=== PATIENT | female | born 1970 | race Caucasian/White ===

== ENCOUNTER 2017-09-22 23:24 | Inpatient (IN) | payer OTHER ==
[~2017-09-22] VITALS: Ht 177.8 cm; Wt 49.9 kg
[2017-09-23 16:40] VITALS: BP 119/70
[2017-09-23] MEDS ORDERED: LORAZEPAM 1 MG TABLET PO PRN (17:45)
[2017-09-23] MEDS ORDERED: LORAZEPAM 2 MG/1 ML VIAL IM PRN (17:45)
[2017-09-23] MEDS ORDERED: MAG HYDROX/AL HYDROX/SIMETH 30 ML LIQUID UDC PO PRN (17:45)
[2017-09-23] MEDS ORDERED: THIAMINE HCL 200 MG/2 ML VIAL IM ONE (17:45)
[2017-09-23] MEDS ORDERED: 5 DAY TAPER OF LORAZEPAM -SERENITY PROTOCOL PO PRN (17:45)
[2017-09-23] MEDS ORDERED: IBUPROFEN 600 MG TABLET PO PRN (17:45)
[2017-09-23] MEDS ORDERED: ONDANSETRON ODT 4 MG TAB.RAPDIS SL PRN (17:45)
[2017-09-23] MEDS ORDERED: ONDANSETRON 4 MG/2 ML VIAL IM PRN (17:45)
[2017-09-23] MEDS ORDERED: MAGNESIUM HYDROXIDE 30 ML LIQUID UDC PO PRN (17:45)
[2017-09-23] MEDS ORDERED: diphenhydrAMINE 50 MG CAPSULE PO PRN (17:45)
[2017-09-23] MEDS ORDERED: ACETAMINOPHEN 325 MG TABLET PO PRN (17:45)
[2017-09-23] MEDS ORDERED: MIRALAX 17 GM POWD.PACK PO PRN (17:45)
[2017-09-23 17:55] LABS: BASOPHILS % (AUTO) 0.5 % (0.0-2.0); EOSINOPHILS % (AUTO) 0.2 % (0.0-7.0); HEMOGLOBIN 13.5 g/dL (10.9-14.3); LYMPHOCYTES # (AUTO) 1.7 K/uL (20.0-40.0); LYMPHOCYTES % (AUTO) 27.2 % (20.5-51.5); MEAN CORPUSCULAR HEMOGLOBIN 31.2 uug (24.7-32.8); MEAN CORPUSCULAR HGB CONC 34 g/dL (32.3-35.6); MEAN CORPUSCULAR VOLUME 91.9 fL (75.5-95.3); MONOCYTES # (AUTO) 0.4 K/uL (2.0-10.0); MONOCYTES % (AUTO) 5.8 % (0.0-11.0); NEUTROPHILS # (AUTO) 4.2 K/uL (1.8-8.9); NEUTROPHILS % (AUTO) 66.3 % (38.5-71.5); PLATELET COUNT (AUTO) 243 K/uL (179-408); RED BLOOD CELL COUNT(AUTO) 4.35 MIL/uL (3.63-4.92); WHITE BLOOD COUNT (AUTO) 6.4 K/uL (3.8-11.8)
[2017-09-23 17:56] LABS: *URINE HCG, QUAL NEGATIVE (NEGATIVE)
[2017-09-23 18:02] LABS: *AMPHETAMINE, URINE NEGATIVE (NEGATIVE); *BARBITURATE, URINE NEGATIVE (NEGATIVE); *CANNABINOID, URINE NEGATIVE (NEGATIVE); *COCCAINE, URINE NEGATIVE (NEGATIVE); *OPIATE, URINE NEGATIVE (NEGATIVE); *PHENCYCLIDINE SCREEN,URINE NEGATIVE (NEGATIVE)
[2017-09-23 18:09] LABS: BILIRUBIN,TOTAL 0.5 mg/dL (0.2-1.0); CREATININE 0.6 mg/dL (0.6-1.3); MAGNESIUM 2.4 mg/dL (1.8-2.4); POTASSIUM 3.6 mmol/L (3.5-5.1); TOTAL PROTEIN, SERUM 8.1 g/dL (6.4-8.2)
[2017-09-23] MEDS: LORAZEPAM 1 MG TABLET PO PRN ×2 (18:32→20:55)
[2017-09-23 20:00] VITALS: BP 119/64
[2017-09-24] VITALS: BP 131/80
[2017-09-24] MEDS: LORAZEPAM 1 MG TABLET PO PRN (00:38)
[2017-09-24 04:00] VITALS: BP 126/84
[2017-09-24 08:00] VITALS: BP_SYST 107; BP_SYST 128; BP_DIAS 66; BP_DIAS 76
[2017-09-24] MEDS: LORAZEPAM 1 MG TABLET PO SCH ×4 (09:00→20:04)
[2017-09-24] MEDS ORDERED: TUBERCULIN,PURIF.PROT.DERIV. 5 TU/0.1 ML TEST ID ONE (09:00)
[2017-09-24] MEDS: THIAMINE HCL 100 MG TABLET PO SCH (09:05)
[2017-09-24] MEDS: MULTIVITAMINS,THERAPEUTIC TABLET PO SCH (09:05)
[2017-09-24] MEDS: FOLIC ACID 1 MG TABLET PO SCH (09:05)
[2017-09-24 12:00] VITALS: BP 122/73
[2017-09-24 16:00] VITALS: BP 128/68
[2017-09-24 20:00] VITALS: BP 120/75
[2017-09-25] VITALS: BP 111/69
[2017-09-25 04:00] VITALS: BP 110/72
[2017-09-25 08:00] VITALS: BP 116/71
[2017-09-25] MEDS: THIAMINE HCL 100 MG TABLET PO SCH (08:01)
[2017-09-25] MEDS: FOLIC ACID 1 MG TABLET PO SCH (08:01)
[2017-09-25] MEDS: MULTIVITAMINS,THERAPEUTIC TABLET PO SCH (08:01)
[2017-09-25] MEDS ORDERED: LORAZEPAM 1 MG TABLET PO SCH (09:00)
[2017-09-25 12:00] VITALS: BP 105/76
[2017-09-25 13:07] LABS: HEPATITIS B SURFACE AG Negative (Negative)
[2017-09-25 16:00] VITALS: BP 124/72
[2017-09-25 17:35] LABS: BILIRUBIN,TOTAL 0.4 mg/dL (0.2-1.0); CREATININE 0.7 mg/dL (0.6-1.3); POTASSIUM 3.9 mmol/L (3.5-5.1); TOTAL PROTEIN, SERUM 6.8 g/dL (6.4-8.2)
[2017-09-25] MEDS: CLONIDINE HCL 0.1 MG TABLET PO PRN (19:59)
[2017-09-25 20:00] VITALS: BP 116/74
[2017-09-26] VITALS: BP 113/69
[2017-09-26] MEDS: CLONIDINE HCL 0.1 MG TABLET PO PRN (02:17)
[2017-09-26 04:00] VITALS: BP 98/59
[2017-09-26 08:00] VITALS: BP 109/62
[2017-09-26] MEDS: MULTIVITAMINS,THERAPEUTIC TABLET PO SCH (08:09)
[2017-09-26] MEDS: THIAMINE HCL 100 MG TABLET PO SCH (08:09)
[2017-09-26] MEDS: FOLIC ACID 1 MG TABLET PO SCH (08:09)
[2017-09-26] MEDS ORDERED: LORAZEPAM 1 MG TABLET PO SCH (09:00)
[2017-09-27] MEDS ORDERED: LORAZEPAM 1 MG TABLET PO SCH (09:00)
[2017-09-28] MEDS ORDERED: LORAZEPAM 1 MG TABLET PO SCH (09:00)
== END 2017-09-26 09:36 | disposition home or self-care (01) | DRG 895 ==
LOC: UNDOADMIN 23:24 → SRC 23:24
PROVIDERS: ADMIT Family Medicine Addiction Medicine; ATTEND Family Medicine Addiction Medicine
PROC: HZ2ZZZZ Detoxification Services for Substance Abuse Treatment (ICD-10-PCS; principal; 2017-09-23)
PROC: HZ31ZZZ Individual Counseling for Substance Abuse Treatment, Behavioral (ICD-10-PCS; 2017-09-25)
DX: F10.230 Alcohol dependence with withdrawal, uncomplicated (principal); Z68.1 Body mass index [BMI] 19.9 or less, adult; Y90.9 Presence of alcohol in blood, level not specified; Z81.1 Family history of alcohol abuse and dependence; R63.6 Underweight; R74.0 Nonspecific elevation of levels of transaminase and lactic acid dehydrogenase [LDH]; F11.23 Opioid dependence with withdrawal; F41.9 Anxiety disorder, unspecified
CPT/HCPCS: 36415; 80307; 83735; 84703; 85025; 86580; 86592; 86705; 86803; 87340; 87806; G0480; J3411; Q0163